=== PATIENT | male | born 1955 | race Caucasian/White ===

== ENCOUNTER 2019-07-29 21:39 | Emergency (ER) | payer OTHER ==
[2019-07-29 21:54] VITALS: BMI 23.7
[2019-07-29 22:05] VITALS: BP 161/103; PULSE 56; TEMP 98.3
[2019-07-29] MEDS ORDERED: CIPROFLOXACIN 500 MG TABLET (RESTRICTED TO ID) PO ONE (22:17)
[2019-07-29] MEDS ORDERED: CIPROFLOXACIN 250 MG TABLET (RESTRICTED TO ID) PO ONE (22:18)
--- NOTE | 2019-07-29 22:20 | PDOC ---
History of Present Illness - General Chief Complaint: Urinary Problem Stated Complaint: URINARY PROBLEM Time Seen by Provider: 07/29/19 21:43 History Source: Patient Exam Limitations: No Limitations - History of Present Illness Initial Comments: 07/29/19 22:18 This is a 63-year-old male with history of BPH. Patient has had urinary retention x1 in the past. Patient comes in this evening complaining of acute urinary retention. A Nam was placed with approximately 960 cc of urine. Patient denied any fever, chills, nausea vomiting or diarrhea or any other complaints. Allergies: as per nursing notes Past Medical History: As per HPI Social history: Lives with family. No smoking. No alcohol. No illicit drugs. Surgical history: None General: No fevers or chills, no weakness, no weight loss HEENT: No change in vision. No sore throat,. No ear pain CardioVascular: no chest discomfort. No shortness of breath Respiratory:No cough, or wheezing. Gastrointestinal: no nausea, vomiting, diarrhea or constipation, No rectal bleeding Genitourinary: No dysuria, hematuria, or frequency Musculoskeletal: No joint or muscle pain or swelling Neurologic: No headache, vertigo, dizziness or loss of consciousness Psychiatric: nor depression Skin: No rashes or easy bruising Endocrine: no increased thirst or abnormal weight change Allergic: no skin or latex allergy All other systems reviewed and normal GENERAL: The patient is awake, alert, and fully oriented, in no acute distress. HEAD: Normal with no signs of trauma. EYES: Pupils equal, round and reactive to light, extraocular movements intact, sclera anicteric, conjunctiva clear. Back/flank/abdomen there is no CVA tenderness or abdominal tenderness. Exam was done after Nam was placed. EXTREMITIES:atraumatic, Normal range of motion, no edema. NEUROLOGICAL: Normal speech, normal gait. PSYCH: Normal mood, normal affect. SKIN: Warm, Dry, normal turgor, no rashes or lesions noted. Assessment and plan: 63-year-old male with acute urinary retention. Patient had Nam placed was converted to a leg bag. Urine was sent for urinalysis and culture. Stated was patient was started on Cipro as he is from out of town and will not be able to see his urologist in town next week sometime. Patient discharged home. Past History - Past Medical History Allergies/Adverse Reactions: Allergies Allergy/AdvReac Type Severity Reaction Status Date / Time No Known Allergies Allergy Unverified 07/29/19 21:40 Home Medications: Ambulatory Orders Ciprofloxacin HCl [Cipro] 500 mg PO BID #12 tablet 07/29/19 Fluticasone Prop 0.05% Nasal [Flonase -] 1 - 2 spray NS DAILY 07/29/19 Tamsulosin HCl [Flomax] 0.4 mg PO DAILY 07/29/19 Asthma: No (SEASONAL ALLERGIES) COPD: No Disorders: Yes (ENLARGED PROSTATE) - Psycho Social/Smoking Cessation Hx Smoking History: Never smoked *Physical Exam - Vital Signs Last Vital Signs Temp Pulse Resp BP Pulse Ox 98.3 F 56 L 18 161/103 H 98 07/29/19 22:04 07/29/19 22:04 07/29/19 22:04 07/29/19 22:04 07/29/19 22:04 Discharge - Discharge Information Problems reviewed: Yes Clinical Impression/Diagnosis: Acute urinary retention Condition: Stable Disposition: HOME - Admission No - Additional Discharge Information Prescriptions: Ciprofloxacin HCl [Cipro] 500 mg PO BID #12 tablet - Follow up/Referral - Patient Discharge Instructions Additional Instructions: Take the Cipro 1 tablet twice a day. Wear the leg bag and leave the Nam in until you see your urologist. Return to the emergency department immediately with ANY new, persistent or worsening symptoms. Continue any medications as previously prescribed by your physician. You should follow up with your primary doctor as soon as possible regarding today's emergency department visit. . Please make sure your doctor reviews the results of your emergency evaluation. Thank you for coming to the Emergency Department today for your care. It was a pleasure to see you today. Please note that your evaluation is INCOMPLETE until you follow-up with your doctor. - Post Discharge Activity
[2019-07-29 22:40] LABS: EPITHELIAL CELLS RARE /hpf
== END 2019-07-29 22:24 | disposition home or self-care (01) ==
LOC: FER 21:39
PROC: 0T9B70Z Drainage of Bladder with Drainage Device, Via Natural or Artificial Opening (ICD-10-PCS; principal; 2019-07-29)
DX: R33.9 Retention of urine, unspecified (principal); J30.2 Other seasonal allergic rhinitis; N40.0 Benign prostatic hyperplasia without lower urinary tract symptoms
CPT/HCPCS: 81003; 81015; 87086; 99283-25